=== PATIENT | female | born 1980 | race Caucasian/White ===

== ENCOUNTER 2020-12-19 16:39 | Emergency (ER) | payer SELFPAY ==
[~2020-12-19] VITALS: Ht 154.9 cm; Wt 66.7 kg
[2020-12-19 17:16] VITALS: BP 123/72
[2020-12-19] MEDS ORDERED: LIDOCAINE MPF 1% 10 MG/ML VIAL INJ ONE (17:35)
[2020-12-19] MEDS ORDERED: KETOROLAC 30 MG/ML VIAL IM ONE (17:35)
[2020-12-19 18:14] VITALS: BP 123/72
== END 2020-12-19 18:14 | disposition home or self-care (01) ==
LOC: MED 16:39
DX: L02.211 Cutaneous abscess of abdominal wall (principal)
CPT/HCPCS: 10060; 96372; 99283; J1885; J2001